=== PATIENT | male | born 1950 | race American Indian/Alaskan Native ===

== ENCOUNTER 2017-09-21 10:08 | Day surgery (SDC) | payer BC, MEDICARE ==
[2017-09-21] MEDS ORDERED: VIGAMOX OD SCH (11:00)
[2017-09-21] MEDS: ISOPTO CARPINE OD SCH ×3 (12:40→12:50)
[2017-09-21] MEDS: TETRACAINE 0.5% OD SCH ×3 (12:40→12:50)
--- NOTE | 2017-09-21 12:51 | Anesthesia Day of Surgery ---
Anesthesia Day of Surgery - Day of Surgery Patient Examined: Yes Patient H&P Reviewed: Yes Patient is NPO: Yes
--- NOTE | 2017-09-21 12:51 | Anesthesia Consultation ---
Anesthesia Consult and Med Hx Date of service: 09/21/17 - Airway Anesthetic Teeth Evaluation: Poor ROM Head & Neck: Adequate Mental/Hyoid Distance: Adequate Mallampati Class: Class II Intubation Access Assessment: Probably Good - Pulmonary Exam CTA: Yes - Cardiac Exam Cardiac Exam: RRR - Pre-Operative Health Status ASA Pre-Surgery Classification: ASA3 Proposed Anesthetic Plan: MAC - Pulmonary Hx Asthma: No SOB: Yes COPD: No Hx Pneumonia: No Hx Sleep Apnea: Yes (no CPAP) - Cardiovascular System Hx Hypertension: Yes (1 1/2 years) - Central Nervous System Hx Back Pain: Yes Hx Psychiatric Problems: No - Gastrointestinal Hx Ulcer: Yes (H/O PUD) - Endocrine Hx Renal Disease: No Hx End Stage Renal Disease: No Hx Non-Insulin Dependent Diabetes: Yes Hx Hypothyroidism: Yes (S/P THYROIDECTOMY IN EARLY S PER PT.) Hx Hyperthyroidism: Yes - Other Systems Hx Alcohol Use: No Hx Substance Use: No Hx Cancer: No
[2017-09-21] MEDS ORDERED: SUBLIMAZE ONE (13:25)
[2017-09-21] MEDS ORDERED: VERSED ONE (13:26)
[2017-09-21] MEDS ORDERED: XYLOCAINE MPF 1% INFILTRATI ONE ×2 (13:44→14:27)
--- NOTE | 2017-09-21 14:40 | Post Anesthesia Evaluation ---
- Post Anesthesia Evaluation Patient Participated: Yes Airway Patent: Yes Stable Respiratory Function: Yes Nausea/Vomiting: No Temp > 96.8F: Yes Pain Manageable: Yes Adequeate Hydration: Yes Anesthesia Complications: No
--- NOTE | 2017-09-21 14:59 | Short Stay Summary ---
Short Stay Documentation Date of service: 09/21/17 - History H&P: obtained from office - Allergies and Medications Current Medications: Allergies iodine Allergy (Verified 09/21/17 10:51) Anaphylaxis shellfish derived Allergy (Verified 09/21/17 10:51) Anaphylaxis Home Medications Medication Instructions Recorded Confirmed Last Taken Type Levothyroxine [Synthroid] 100 mcg PO QAM 09/10/13 09/20/17 11/26/14 07:30 History Oxycodone HCl/Acetaminophen 1 each PO Q6HR PRN 09/10/13 09/20/17 11/20/14 History [Percocet 10-325 mg] Nitrofurantoin Macrocrysta(Nf) 100 mg PO PRN 11/27/14 09/20/17 11/26/14 07:30 History [Macrodantin (Nf)] Metformin HCl [Fortamet ER] 1,000 mg PO QDAY 09/20/17 09/20/17 Unknown History Active Medications Moxifloxacin HCl (Vigamox) 1 drops OD Q5MIN MEETA Stop: 09/21/17 23:59 Pilocarpine HCl (Isopto Carpine) 1 drops OD Q5MIN MEETA Stop: 09/21/17 23:59 Prednisolone Acetate (Pred Forte 1%) 1 drops OD QID MEETA Last Admin: 09/21/17 14:40 Dose: 1 drops Tetracaine HCl (Tetracaine 0.5%) 1 drops OD Q5M MEETA Stop: 09/21/17 23:59 - Brief post op/procedure progress note Date of procedure: 09/21/17 Pre-op diagnosis: dislocated DSAEK graft right eye Post-op diagnosis: same Procedure: Cheryl bleeding and repositioning of dislocated graft right eye Anesthesia: MAC, local Surgeon: PRIYANK LOVELL Estimated blood loss: none Pathology: none Condition: stable - Disposition Condition at discharge: Good Disposition: DC-01 TO HOME OR SELFCARE - Discharge Diagnoses (1) Dislocated Descemet's stripping endothelial keratoplasty (DSEK) graft Status: Resolved Qualifiers: Encounter type: subsequent encounter Qualified Code(s): T85.328D - Displacement of other ocular prosthetic devices, implants and grafts, subsequent encounter Short Stay Discharge Plan Additional Instructions: FOLLOW SURGEON INSTRUCTION SHEETS. PRED FORTE ONE DROP 4X -A-DAY FOR 6 MONTHS. Follow up with: JULIAN MARIO MD [Primary Care Provider] - 7 Days Forms: Outpatient Surgery DC Inst.
[2017-09-21] MEDS ORDERED: PRED FORTE 1% ONE (15:02)
[2017-09-21 15:03] VITALS: BP 162/79
--- NOTE | 2017-09-21 15:04 | Operative Report ---
Operative Report Operative Report: PATIENT NAME: DATE OF : DATE OF SURGERY: 09/21/2017 PREOPERATIVE DIAGNOSIS: Dislocated DMAEK graft right eyet POSTOPERATIVE DIAGNOSIS: Same PROPOSED PROCEDURE: Repositioning and bubbling of corneal graft right eye OPERATIVE PROCEDURE: Same SURGEON: Anai Mcfarland MD AIRCRAFT ELECTRICIAN SURGEON: ANESTHESIA: Monitored anesthesia care in combination with topical and intracameral anesthesia because of the established specific risk of reflux, arrhythmias, or anxiety attacks associated with ocular manipulation, as well as the difficulty of the internet site designer to manage such potentially catastrophic events while simultaneously attempting to complete the surgical procedure and was deemed necessary for the patient's safety to have an anesthesiologist was present during the procedure whenever possible. The anesthesiologist was utilized to regulate the intravenous sedation of the patient so the patient was cooperative yet not asleep in order for the patient to successfully maintain fixation of the eye on the operating light of the microscope. PROFESSOR OF COMMUNICATION AND WRITING: COMPLICATIONS: None ALLERGIES: Iodine solution Fish PREOPERATIVE NOTE: The patient is a male who has the diagnosis of Fuchs dystrophy. Patient had undergone corneal transplant about 10 days ago and at the first follow-up the graft was completely attached. I do one week follow-up due graft was completely detached and had moved inferiorly. Because the graft was moving freely within the anterior chamber I decided to take the patient back to the operating room for re-bubbling and repositioning of graft PROGNOSIS: Excellent INDICATIONS FOR SURGERY: The patient is undergoing surgery with the hope of eliminating or improving these visual difficulties. A sharp blade was next used to make a stab incision in mid peripheral cornea into the anterior chamber. This was done so that the inner portion would be covered by the donor tissue later in the case. Gentian zach marked the incision as well. This incision was positioned to be used by my right hand. Air was injected onto the graft and the graft was resected using a bent 30- gauge needle. While graft was centered more air was injected. Patient was taken to recovery room where he was to stay for an hour before going home Needle reposition of the donor: The donor button of tissue could not be massaged into the correct position on the recipient cornea. Therefore, a 30- gauge needle was bent at its tip to form a right angle of the peripheral one- third to one-half of the beveled area. This needle was introduced into the anterior chamber and used to grasp the peripheral edge of the donor tissue and pull it into the correct position. Massage was then used to provide good apposition and centration of the tissue. DISCHARGE SUMMARY: The patient was released in stable condition. The patient and those with the patient were given a written sheet of postoperative instructions and counseling on any abnormal laboratory studies. The patient is to call immediately for difficulties and will otherwise see us in the morning at the office. The patient was given prescriptions for Tylenol No. 3, Keflex, and TobraDex ointment. Anai Mcfarland M.D. Date cc: Dictated: Worksheets: Transcribed:
[2017-09-21] MEDS ORDERED: PRED FORTE 1% OD SCH (18:00)
== END 2017-09-21 15:05 | disposition home or self-care (01) ==
LOC: OR 10:08
DX: T85.328A Displacement of other ocular prosthetic devices, implants and grafts, initial encounter (principal); Y83.2 Surgical operation with anastomosis, bypass or graft as the cause of abnormal reaction of the patient, or of later complication, without mention of misadventure at the time of the procedure; E89.0 Postprocedural hypothyroidism; I10 Essential (primary) hypertension; M19.90 Unspecified osteoarthritis, unspecified site; Z88.2 Allergy status to sulfonamides; Z91.041 Radiographic dye allergy status; Z79.899 Other long term (current) drug therapy; Z79.84 Long term (current) use of oral hypoglycemic drugs; Z86.718 Personal history of other venous thrombosis and embolism; Z98.890 Other specified postprocedural states; Z96.612 Presence of left artificial shoulder joint; Z94.7 Corneal transplant status
CPT/HCPCS: 66020; 82962; J2250; J3010

== ENCOUNTER 2018-03-15 09:51 | Day surgery (SDC) | payer BC, MEDICARE ==
[~2018-03-15 09:51] MED LIST: TOBRADEX ONE; XYLOCAINE 1%/ EPI 1:100,000 INFILTRATI ONE
--- NOTE | 2018-03-15 11:04 | Anesthesia Consultation ---
Anesthesia Consult and Med Hx Date of service: 03/15/18 - Airway Anesthetic Teeth Evaluation: Good ROM Head & Neck: Adequate Mental/Hyoid Distance: Adequate Mallampati Class: Class II Intubation Access Assessment: Probably Good - Pulmonary Exam CTA: Yes - Cardiac Exam Cardiac Exam: RRR - Pre-Operative Health Status ASA Pre-Surgery Classification: ASA3 Proposed Anesthetic Plan: MAC - Pulmonary Hx Asthma: No SOB: Yes COPD: No Hx Pneumonia: No Hx Sleep Apnea: Yes (no CPAP) - Cardiovascular System Hx Hypertension: Yes () - Central Nervous System Hx Back Pain: Yes Hx Psychiatric Problems: No - Gastrointestinal Hx Ulcer: Yes (H/O PUD) - Endocrine Hx Renal Disease: No Hx End Stage Renal Disease: No Hx Non-Insulin Dependent Diabetes: Yes Hx Hypothyroidism: Yes (S/P THYROIDECTOMY IN EARLY S PER PT.) Hx Hyperthyroidism: Yes - Other Systems Hx Alcohol Use: No Hx Substance Use: No Hx Cancer: No
--- NOTE | 2018-03-15 11:04 | Anesthesia Day of Surgery ---
Anesthesia Day of Surgery - Day of Surgery Patient Examined: Yes Patient H&P Reviewed: Yes Patient is NPO: Yes Beta Blockers: Yes Cardiac Clearance: No Pulmonary Clearance: No
[2018-03-15] MEDS: ISOPTO CARPINE OS SCH ×2 (11:49→11:55)
[2018-03-15] MEDS: TETRACAINE 0.5% OS PRN ×2 (11:50→12:00)
[2018-03-15] MEDS: VIGAMOX OS SCH ×2 (11:52→12:00)
[2018-03-15] MEDS ORDERED: PRED FORTE 1% OS SCH (14:00)
[2018-03-15] MEDS ORDERED: APRESOLINE ONE (14:22)
[2018-03-15] MEDS ORDERED: ANCEF ONE (14:25)
[2018-03-15] MEDS ORDERED: DECADRON ONE (14:25)
[2018-03-15] MEDS ORDERED: XYLOCAINE MPF 1% INFILTRATI ONE (14:48)
--- NOTE | 2018-03-15 15:12 | Operative Report ---
Operative Report Operative Report: PATIENT NAME: DATE OF : DATE OF SURGERY: 03/15/2018 PREOPERATIVE DIAGNOSIS: Fuchs dystrophy left eye POSTOPERATIVE DIAGNOSIS: SAME PROPOSED PROCEDURE: Endothelial keratoplasty with Descemets stripping/ Penetrating keratoplasty, *left eye HYBRID (DMAEK) ADDITIONAL PROCEDURE: NONE OPERATIVE PROCEDURE: 1. Endothelial keratoplasty with Descemets stripping/ Penetrating keratoplasty, left eye DMAEK SURGEON: Anai Mcfarland MD DRESSAGE JUDGE SURGEON: NONE ANESTHESIA: Monitored anesthesia care in combination with topical and intracameral anesthesia because of the established specific risk of reflux, arrhythmias, or anxiety attacks associated with ocular manipulation, as well as the difficulty of the conductor/engineer to manage such potentially catastrophic events while simultaneously attempting to complete the surgical procedure and was deemed necessary for the patient's safety to have an anesthesiologist was present during the procedure whenever possible. The anesthesiologist was utilized to regulate the intravenous sedation of the patient so the patient was cooperative yet not asleep in order for the patient to successfully maintain fixation of the eye on the operating light of the microscope. COMPLICATIONS: None ALLERGIES: None PREOPERATIVE NOTE: The patient is a male who has the diagnosis or diagnoses of Fuchs dystrophy. Examination of the posterior portion of the eyes by indirect ophthalmoscopy shows the optic nerve and retina to be normal. The patient has decompensation of the cornea with dysfunction and dystrophy of the corneal endothelium. Donor tissue will be used to replace the dysfunctional endothelium utilizing a penetrating technique into the anterior chamber. This complicated technique allows the patient to maintain structural integrity of the eye making it much more resistant to traumatic rupture than a standard keratoplasty. It also allows a larger than average surface area of transplanted endothelium which hopefully in the long run will allow for longer endothelial viability and success for the surgery. It also provides for faster visual recovery and less anisometropia than previous keratoplasty techniques. It is technically more difficult because of the complicated preparation of the donor tissue and insertion of the donor tissue into the anterior chamber with fixation of the tissue without direct suturing of the donor. This also provides an increased chance of dislocation of the donor tissue in the immediate postoperative period compared to standard keratoplasty techniques. This type of corneal transplant takes over twice as long as a standard corneal transplant. Moreover, the preparation and end of surgery are more time consuming for both the surgeon and staff: the blocking of the eye requires a longer setup time as noted, the procedure itself is more complex, and the patient needs to lay face up and flat in the recovery area for a specified period of time prior to discharge. Preoperatively, it was discussed with the patient that they could have either a standard corneal transplant or a variation of a penetrating keratoplasty where only the posterior layers of the cornea are transplanted. With this new technique, as with any corneal transplant, there is always the possibility that the surgery may need to be repeated; or, in this case, also repeated with a standard corneal transplant if the visual result is not satisfactory. However, some of the advantages of this current technique are much more rapid visual recovery and a tectonically stronger eye after surgery. PROGNOSIS: Excellent INDICATIONS FOR SURGERY: The patient is undergoing surgery with the hope of eliminating or improving these visual difficulties. OPERATIVE REPORT: The patient was taken into the preoperative area and evaluated medically and found from a systemic standpoint to be suitable for the planned surgery and anesthesia. The patient was then sedated and monitored by anesthesia. The patient was next taken into the operating room where they were positioned on the operating bed. They were given drops of topical anesthetic in the operative eye. Betadine was used to scrub the periorbital area, eyelids, adjacent cheek and forehead. The prepped area was dried with sterile gauze. The patient was draped, and a wire speculum was placed between the eyelids. The horizontal diameter of the cornea was measured with calipers to assist in determining the proper sizing of the trephination blade to be used for donor incision and for removal of the patients central Descemets membrane. PREPARATION OF DONOR TISSUE: Prior to surgery, the donor tissue was inspected and found to be adequate for the planned procedure. The involved eye bank provided the usual demographic information on the donor including age, cause of , necessary screening and blood work. The results were negative regarding possible transmission of diseases from the donor. Our inspection of the donor tissue showed no gross abnormalities. The patients donor cornea was prepared by the eye bank to separate the anterior and posterior portions of the cornea for the planned surgery. This was done with a microkeratome and the anterior cap of tissue was placed back on the cornea and it was removed from the artificial anterior chamber and placed in the Optisol storage solution and sent to us for transplantation. Gentian zach orozco were placed on the epithelial, or anterior surface of the corneal cap side of the tissue for identification. The cornea was inspected prior to surgery and found to be suitable and at the time of surgery was taken out of the storage solution and carefully centered on the cutting block with the centration based on the centration patrick that was made the eye bank on the external surface of the cornea-the stromal side. The donor tissue was removed from the tissue storage container by carefully removing it with forceps taking care not to touch the endothelial surface but only the scleral rim Suction was applied, the centration was rechecked to make sure it was perfectly centered. Once the size of the appropriate trephine was determined, the donor was punched with the trephine. The donor cornea was then covered with tissue storage solution and put aside for use later in the surgical procedure. PREPARATION OF THE RECIPIENT CORNEA: Attention was now directed to the patient s eye. The speculum had already been placed between the eyelids and the eye prepped and draped in my usual manner with Betadine solution prior to the starting the surgery. The horizontal corneal diameter was measured and the overall condition of the eye was evaluated to determine which size of trephine would best provide for as large donor button as possible without compromising the angle structures or iris. Once the trephine size was chosen, it was used lightly to patrick the epithelium on the corneal surface to provide a reference for later placement of the donor tissue and for removal of Descemets membrane. This was the same trephine used to punch the donor tissue. The patient had previously had a clear corneal incision of 5.0 mm for corneal surgery. This incision was able to be opened by using a Sinskey hook to separate the superficial area of the wound. Next, a cyclodialysis spatula was used to separate the deeper anterior vertical portion and the incision and then the lamellar portion. After the side port incision was made as noted below, a specially modified Bowen-Sherman hook was introduced through the reopened incision into the anterior chamber and advanced to the nasal side of the chamber. The hook was used to grab the nasal side of the graft and dislodge it. Pulling with the hook, the graft was disinserted from the back surface of the patient, or recipient, cornea and removed from the eye. In this case, the Descemets, which was stripped and removed, consisted of the previous graft with the portion of stroma from the previous donor. A sharp blade was next used to make a stab incision in mid peripheral cornea into the anterior chamber. This was done so that the inner portion would be covered by the donor tissue later in the case. Gentian zach marked the incision as well. This incision was positioned to be used by my right hand. A 23-gauge needle hooked up to an infusion of balanced salt solution was inserted through the midperipheral cornea into the anterior chamber. This was used to maintain the anterior chamber while removing Descemets membrane. A modified Bowen-Sherman hook was next placed through the stab incision and the hook was used to score Descemets membrane in a circular fashion, essentially scoring a [place] about 1.0 mm smaller than the previously placed reference patrick by the trephine on the epithelium. A specially designed Descemets stripper/ scraper was inserted into the eye and carefully extended across the anterior chamber in a manner not to empty the anterior chamber, to damage the iris, or to damage the lens. Starting at the nasal side of the anterior chamber, the stripper was used to catch Descemets membrane at the site of the scoring and the membrane was carefully stripped off the back surface of the cornea. The stripper was first pulled back centrally to loosen Descemets membrane there and then to each side to help try and remove the central area of Descemets membrane which had been outlined by the scoring. The membrane was then pulled out of the eye through the incision. The removed Descemets membrane was placed on the outer surface of the cornea and carefully unfolded to make sure it was removed in its entirety and that no portion was left in the central cornea. Any indication of retained central membrane was followed by reinsertion of the stripper and further removal of retained membrane. Care was taken during both the scoring and stripping not to unduly push up into the overlying cornea as that can cause tearing of the corneal tissue, producing an irregular surface which can lead to decreased visual recovery and difficulty with adherence of the donor tissue to the recipient. Once it was confirmed that Descemets membrane was removed, the incision was extended with the sharp blade for its full length into the anterior chamber. The anterior chamber was reinflated with balanced salt solution. The donor tissue was removed from the cutting block and transferred to the operative field. It was placed on the patients cornea so that the endothelium of the donor was facing up. The tissue storage solution and any blood or other material was allowed to flow off the donor tissue. A small amount of viscoelastic was then placed on the endothelial surface of the donor. Two forceps were then used to grasp an edge of the donor taking care not to actually touch the endothelium and the posterior portion of the donor, which had been previously dissected on the artificial anterior chamber, and the donor gently partially pulled apart about half of the posterior portion from the anterior portion. A Busin Funnel was brought into the operative field and the posterior portion of the donor was pulled onto it. Intraocular forceps were used to pull the tissue into the funnel, essentially making it fold over on itself endothelial side inward. The intraocular forceps were then introduced through a previously made peripheral corneal stab incision in the nasal cornea. The forceps were moved across the anterior chamber to the area of the 5.0 mm incision. The Busin funnel was inserted into the 5.0 mm wound. The forceps grasped the edge of the donor tissue and the tissue was pulled into the eye. Once inside the eye, the forceps released their hold and the funnel was removed. Using a 30-gauge needle, a small stab incision was made in the peripheral cornea and a small amount of air was injected within the folded-over piece of donor tissue in the eye. The air was slowly injected to unfold the donor endothelial side down. Once the donor had unfolded, the anterior chamber was completely filled with air. A Brandon roller was used to massage the anterior surface of the cornea and to massage the donor tissue into the correct position. The massaging also helped to remove retained air or fluid caught between the donor and recipient tissue. Once the donor was in the correct position and no retained fluid or air was present between the donor and recipient, the timer was started and the anterior chamber was left completely filled with air for the designated time. OTHER SPECIFICS OF THE SURGICAL PROCEDURE: Trephine size: 7.75 mm Horizontal corneal diameter: 11.0 mm Time anterior chamber was completely filled with air in the operating room while the donor cornea was allowed to hold in position without any manipulation or massagin minutes The patient laid face up and flat in the recovery room with a partial air bubble to help with further adherence of the donor cornea to the recipient cornea for the following length of time: 45 minutes Needle reposition of the donor: The donor button of tissue could not be massaged into the correct position on the recipient cornea. Therefore, a 30- gauge needle was bent at its tip to form a right angle of the peripheral one- third to one-half of the beveled area. This needle was introduced into the anterior chamber and used to grasp the peripheral edge of the donor tissue and pull it into the correct position. Massage was then used to provide good apposition and centration of the tissue. SUBCONJUNCTIVAL INJECTIONS: Decadron 0.1 mL PF MEDICATIONS APPLIED AT END OF SURGERY: 8 md of decadron and 1 gm of Ancef ADDITIONAL NOTES: [employer] DISCHARGE SUMMARY: The patient was released in stable condition. The patient and those with the patient were given a written sheet of postoperative instructions and counseling on any abnormal laboratory studies. The patient is to call immediately for difficulties and will otherwise see us in the morning at the office.
--- NOTE | 2018-03-15 15:15 | Short Stay Summary ---
Short Stay Documentation Date of service: 03/15/18 - History H&P: obtained from office - Allergies and Medications Current Medications: Allergies iodine Allergy (Verified 03/14/18 12:24) Anaphylaxis shellfish derived Allergy (Verified 03/14/18 12:24) Anaphylaxis Home Medications Medication Instructions Recorded Confirmed Last Taken Type Levothyroxine [Synthroid] 100 mcg PO QAM 09/10/13 09/20/17 09/20/17 History Oxycodone HCl/Acetaminophen 1 each PO Q6HR PRN 09/10/13 09/20/17 09/20/17 History [Percocet 10-325 mg] Nitrofurantoin Macrocrysta(Nf) 100 mg PO PRN 11/27/14 09/20/17 09/20/17 History [Macrodantin (Nf)] Metformin HCl [Fortamet ER] 1,000 mg PO QDAY 09/20/17 09/20/17 09/20/17 History Losartan Potassium 100 mg PO DAILY 09/21/17 09/21/17 09/21/17 08:30 History Active Medications Moxifloxacin HCl (Vigamox) 1 drops OS Q5MIN MEETA Stop: 03/17/18 11:18 Last Admin: 03/15/18 12:00 Dose: 1 drops Pilocarpine HCl (Isopto Carpine) 1 drops OS Q5MIN MEETA Stop: 03/17/18 12:01 Last Admin: 03/15/18 11:55 Dose: 1 drops Prednisolone Acetate (Pred Forte 1%) 1 drops OS QID MEETA Last Admin: 03/15/18 15:02 Dose: 1 drops Tetracaine HCl (Tetracaine 0.5%) 1 drops OS Q5M PRN PRN Reason: Analgesia Last Admin: 03/15/18 12:00 Dose: 1 drops - Brief post op/procedure progress note Date of procedure: 03/15/18 Pre-op diagnosis: Fuchs dystrophy left eye Post-op diagnosis: same Procedure: Hybrid DMAEK LEFT EYE Anesthesia: MAC, local Surgeon: PRIYANK LOVELL Estimated blood loss: minimal Pathology: list (DONOR CORNEA) Specimen disposition: to lab Condition: stable - Disposition Condition at discharge: Good Disposition: DC-01 TO HOME OR SELFCARE - Discharge Diagnoses (1) Fuchs' endothelial dystrophy Status: Resolved Short Stay Discharge Plan Additional Instructions: DR. LOVELL POST OP INSTRUCTIONS GIVEN. Follow up with: JULIAN MARIO MD [Primary Care Provider] - 7 Days Forms: Outpatient Surgery DC Inst.
[2018-03-15] MEDS ORDERED: SUBLIMAZE ONE (15:33)
[2018-03-15] MEDS ORDERED: VERSED ONE (15:33)
[2018-03-15 15:57] VITALS: BP 172/92
== END 2018-03-15 15:40 | disposition home or self-care (01) ==
LOC: OR 09:51
DX: H18.51 Endothelial corneal dystrophy (principal); M19.90 Unspecified osteoarthritis, unspecified site; N40.0 Benign prostatic hyperplasia without lower urinary tract symptoms; I10 Essential (primary) hypertension; K27.9 Peptic ulcer, site unspecified, unspecified as acute or chronic, without hemorrhage or perforation; E11.9 Type 2 diabetes mellitus without complications; E89.0 Postprocedural hypothyroidism; G43.909 Migraine, unspecified, not intractable, without status migrainosus; G47.30 Sleep apnea, unspecified; Z91.041 Radiographic dye allergy status; Z91.013 Allergy to seafood; Z79.84 Long term (current) use of oral hypoglycemic drugs; Z98.890 Other specified postprocedural states
CPT/HCPCS: 65756; 82962; 87075; 87116; J0360; J0690; J1100; J2250; J3010; V2785

== ENCOUNTER 2018-03-21 06:51 | Day surgery (SDC) | payer BC ==
[2018-03-21] MEDS ORDERED: XYLOCAINE 1% MPF 5 mL ONE (07:01)
[2018-03-21] MEDS ORDERED: TETRACAINE 0.5% ONE (07:02)
[2018-03-21] MEDS ORDERED: VIGAMOX ONE (07:05)
[2018-03-21] MEDS ORDERED: TETRACAINE 0.5% OS ONE (07:42)
[2018-03-21] MEDS ORDERED: XYLOCAINE 1%/ EPI 1:100,000 INFILTRATI ONE (07:46)
[2018-03-21] MEDS ORDERED: BSS OS ONE (07:49)
[2018-03-21] MEDS ORDERED: BSS ONE (07:58)
[2018-03-21] MEDS ORDERED: VIGAMOX OS ONE (08:29)
--- NOTE | 2018-03-21 09:04 | Operative Report ---
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 Patient came to the office on Monday postop day #4 and was noted that the current transplant was completely detached. Because the transplant was detached and removed inferiorly it was decided that it was better for me to take him to the operating room to re-bubble and moved to transplant centrally. The patient had a DMAEK which is very thin corneal transplant and because of the thickness of this transplant it is more likely to detach. Patient was taken to the operating room laid supine I was prepped and draped for standard intraocular surgery. Vigamox had been placed into the patient eye 3 every 5 minutes apart. BSS was injected into the eye then transplant was more centrally by tapping the cornea. Once centered air was injected and the cornea and anterior chamber was left full for about 12 minutes. Once this was achieved some of the air was removed and replaced with BSS. At the end of the case 1 drop of Vigamox 1 drop of 10% phenylephrine were placed into the eye. I used 1% lidocaine preservative free throughout the case. Patient tolerated procedure well and went home without any problem.
--- NOTE | 2018-03-21 09:06 | Short Stay Summary ---
Short Stay Documentation Date of service: 03/21/18 - History H&P: obtained from office - Allergies and Medications Current Medications: Allergies iodine Allergy (Verified 03/21/18 05:55) Anaphylaxis shellfish derived Allergy (Verified 03/21/18 05:55) Anaphylaxis Home Medications Medication Instructions Recorded Confirmed Last Taken Type Levothyroxine [Synthroid] 100 mcg PO QAM 09/10/13 03/21/18 09/20/17 History Oxycodone HCl/Acetaminophen 1 each PO Q6HR PRN 09/10/13 03/21/18 09/20/17 History [Percocet 10-325 mg] Nitrofurantoin Macrocrysta(Nf) 100 mg PO PRN 11/27/14 03/21/18 09/20/17 History [Macrodantin (Nf)] Metformin HCl [Fortamet ER] 1,000 mg PO QDAY 09/20/17 03/21/18 09/20/17 History Losartan Potassium 100 mg PO DAILY 09/21/17 03/21/18 09/21/17 08:30 History - Brief post op/procedure progress note Date of procedure: 03/21/18 Pre-op diagnosis: detached graft left eye Post-op diagnosis: same Procedure: Rebuilding of detached graft left eye Anesthesia: local Surgeon: PRIYANK LOVELL Estimated blood loss: minimal Pathology: none Condition: stable - Disposition Condition at discharge: Good Disposition: DC-01 TO HOME OR SELFCARE - Discharge Diagnoses (1) 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
[2018-03-21 09:17] VITALS: BP 159/84
== END 2018-03-21 06:52 | disposition home or self-care (01) ==
LOC: OR 06:51
DX: T85.328A Displacement of other ocular prosthetic devices, implants and grafts, initial encounter (principal); Z79.899 Other long term (current) drug therapy; Y83.2 Surgical operation with anastomosis, bypass or graft as the cause of abnormal reaction of the patient, or of later complication, without mention of misadventure at the time of the procedure; Z91.041 Radiographic dye allergy status; Z91.013 Allergy to seafood
CPT/HCPCS: 82962

== ENCOUNTER 2018-03-29 07:37 | Day surgery (SDC) | payer BC ==
[~2018-03-29 07:37] MED LIST changes: +LACTATED RINGERS 1,000 ML IV SCH; -TOBRADEX ONE; +VERSED IV NR; -XYLOCAINE 1%/ EPI 1:100,000 INFILTRATI ONE
--- NOTE | 2018-03-29 08:22 | Anesthesia Consultation ---
Anesthesia Consult and Med Hx Date of service: 03/29/18 - Airway Anesthetic Teeth Evaluation: Dentures ROM Head & Neck: Adequate Mental/Hyoid Distance: Adequate Mallampati Class: Class III Intubation Access Assessment: Probably Good - Pulmonary Exam CTA: Yes - Cardiac Exam Cardiac Exam: RRR - Pre-Operative Health Status ASA Pre-Surgery Classification: ASA3 Proposed Anesthetic Plan: MAC - Pulmonary Hx Asthma: No SOB: Yes COPD: No Hx Sleep Apnea: Yes (no CPAP) - Cardiovascular System Hx Hypertension: Yes () - Central Nervous System Hx Back Pain: Yes Hx Psychiatric Problems: No - Gastrointestinal Hx Ulcer: Yes (H/O PUD) - Endocrine Hx Non-Insulin Dependent Diabetes: Yes Hx Hypothyroidism: Yes (S/P THYROIDECTOMY IN EARLY 1979'S PER PT.) Hx Hyperthyroidism: Yes - Other Systems Hx Cancer: No
[2018-03-29] MEDS ORDERED: TETRACAINE 0.5% OS PRN (08:30)
[2018-03-29] MEDS: VIGAMOX OS SCH ×3 (08:30→08:40)
[2018-03-29] MEDS ORDERED: XYLOCAINE MPF 1% INFILTRATI ONE (09:27)
[2018-03-29] MEDS ORDERED: VISION BLUE IO ONE (09:29)
[2018-03-29] MEDS ORDERED: BSS OS ONE (09:29)
[2018-03-29] MEDS ORDERED: ADRENALINE P/F ONE (10:00)
--- NOTE | 2018-03-29 10:20 | Operative Report ---
Operative Report Operative Report: Patient was taken to operating room and laid supine eye was prepped and draped for intraocular surgery. Supersharp blade was used to make an incision to my left followed by injection of trypan blue. No loose tags were found. Air was injected into the graft centered and patient was medical home with instructions to call if he started to have eye pressure or pain
--- NOTE | 2018-03-29 10:21 | Short Stay Summary ---
Short Stay Documentation Date of service: 03/29/18 - History H&P: obtained from office - Allergies and Medications Current Medications: Allergies iodine Allergy (Verified 03/28/18 12:10) Anaphylaxis shellfish derived Allergy (Verified 03/28/18 12:10) Anaphylaxis Home Medications Medication Instructions Recorded Confirmed Last Taken Type Levothyroxine [Synthroid] 100 mcg PO QAM 09/10/13 03/28/18 09/20/17 History Oxycodone HCl/Acetaminophen 1 each PO Q6HR PRN 09/10/13 03/28/18 09/20/17 History [Percocet 10-325 mg] Nitrofurantoin Macrocrysta(Nf) 100 mg PO PRN 11/27/14 03/28/18 09/20/17 History [Macrodantin (Nf)] Metformin HCl [Fortamet ER] 1,000 mg PO QDAY 09/20/17 03/28/18 09/20/17 History Losartan Potassium 100 mg PO DAILY 09/21/17 03/28/18 09/21/17 08:30 History Active Medications Lactated Ringer's (Lactated Ringers) 1,000 mls @ 100 mls/hr IV DIRECT MEETA Midazolam HCl (Versed) 2 mg IV PREOP NR Stop: 03/29/18 23:59 Prednisolone Acetate (Pred Forte 1%) 1 drops OD QID MEETA Tetracaine HCl (Tetracaine 0.5%) 1 drops OS Q5M PRN PRN Reason: Analgesia Stop: 03/29/18 11:00 Last Admin: 03/29/18 08:30 Dose: 1 drops - Brief post op/procedure progress note Date of procedure: 03/29/18 Pre-op diagnosis: detached graft left eye Post-op diagnosis: same Procedure: re bubbling of detached graft left eye Anesthesia: local Surgeon: PRIYANK LOVELL Estimated blood loss: none Pathology: none Condition: stable - Disposition Condition at discharge: Good Disposition: DC-01 TO HOME OR SELFCARE Short Stay Discharge Plan Additional Instructions: FOLLOW SURGEON INSTRUCTION SHEETS. Follow up with: JULIAN MARIO MD [Primary Care Provider] - 7 Days Forms: Outpatient Surgery DC Inst.
[2018-03-29] MEDS ORDERED: PRED FORTE 1% OD SCH (10:30)
[2018-03-29 19:27] VITALS: BP 170/90
== END 2018-03-29 10:55 | disposition home or self-care (01) ==
LOC: OR 07:37
DX: T85.328A Displacement of other ocular prosthetic devices, implants and grafts, initial encounter (principal); K27.9 Peptic ulcer, site unspecified, unspecified as acute or chronic, without hemorrhage or perforation; G47.30 Sleep apnea, unspecified; E89.0 Postprocedural hypothyroidism; E11.9 Type 2 diabetes mellitus without complications; Z79.84 Long term (current) use of oral hypoglycemic drugs; Z91.041 Radiographic dye allergy status; Z79.899 Other long term (current) drug therapy; Z91.013 Allergy to seafood; Y83.2 Surgical operation with anastomosis, bypass or graft as the cause of abnormal reaction of the patient, or of later complication, without mention of misadventure at the time of the procedure; Z98.890 Other specified postprocedural states
CPT/HCPCS: 66020; 82962; J0171

== ENCOUNTER 2021-09-06 08:10 | Day surgery (SDC) | payer BC, MEDICARE ==
[2021-09-06] MEDS ORDERED: LACTATED RINGERS 1,000 ML ONE (08:57)
[2021-09-06] MEDS ORDERED: ONDANSETRON 4 MG/2 ML INJ IV PRN (09:57)
[2021-09-06] MEDS ORDERED: HYDROmorphone 1 MG/1 ML INJ IV PRN ×2 (09:57)
[2021-09-06] MEDS ORDERED: LACTATED RINGERS 1,000 ML IV SCH (10:00)
--- NOTE | 2021-09-06 10:04 | Anesthesia Day of Surgery ---
Anesthesia Day of Surgery - Day of Surgery Patient Examined: Yes Patient H&P Reviewed: Yes Patient is NPO: Yes
--- NOTE | 2021-09-06 10:07 | Anesthesia Consultation ---
Anesthesia Consult and Med Hx Date of service: 09/06/21 - Airway Anesthetic Teeth Evaluation: Dentures, Edentulous (Pt has THRUSH and is being treated for it. He reports negative tongue biopsy) ROM Head & Neck: Adequate Mental/Hyoid Distance: Adequate Mallampati Class: Class II Intubation Access Assessment: Good - Pre-Operative Health Status ASA Pre-Surgery Classification: ASA3 Proposed Anesthetic Plan: General - Pulmonary Hx Asthma: Yes ( CHILD ONLY) Hx Respiratory Symptoms: No (+2FS) SOB: Yes COPD: No (PE in ) Hx Sleep Apnea: Yes (no CPAP USE) - Cardiovascular System Hx Hypertension: Yes () Hx Heart Attack/AMI: No - Central Nervous System Hx Seizures: No Hx Back Pain: Yes (DDD and spinal fx from fall) Hx Psychiatric Problems: No - Gastrointestinal Hx Ulcer: Yes (H/O PUD) - Endocrine Hx End Stage Renal Disease: No Hx Liver Disease: No Hx Non-Insulin Dependent Diabetes: Yes Hx Hypothyroidism: Yes (S/P THYROIDECTOMY IN EARLY PER PT.) Hx Hyperthyroidism: Yes - Hematic Hx Anemia: No Hx Sickle Cell Disease: No - Other Systems Hx Alcohol Use: No Hx Substance Use: No Hx Cancer: No - Additional Comments Anesthesia Medical History Comments: Has been here several times
[2021-09-06] MEDS ORDERED: LIDOCAINE MPF (2%) 20 MG/1 ML VIAL 5 ML ONE (11:28)
[2021-09-06] MEDS ORDERED: propofoL 200 MG/20 ML VIAL IV ONE (11:28)
[2021-09-06] MEDS ORDERED: HYDROmorphone 1 MG/1 ML INJ ONE (11:28)
[2021-09-06] MEDS ORDERED: ceFAZolin/STERILE WATER 2 GM/20 ML SYRINGE IV SCH (12:00)
[2021-09-06] MEDS ORDERED: WATER FOR IRRIG STERILE 1,500 ML BOTTLE IR ONE (12:02)
[2021-09-06] MEDS ORDERED: WATER FOR IRRIG STERILE 2000 ML IR ONE (12:03)
[2021-09-06] MEDS ORDERED: IOHEXOL 300 MG/ML 50ML IV ONE (12:08)
[2021-09-06] MEDS ORDERED: ePHEDrine SULFATE 50 MG/1 ML INJ ONE (12:10)
[2021-09-06] MEDS ORDERED: LIDOCAINE 2% UROJECT 10 ML JELLY ONE (12:16)
[2021-09-06] MEDS ORDERED: LIDOCAINE 2% JELLY 30 ML TP ONE (12:18)
[2021-09-06] MEDS ORDERED: PHENYLEPHRINE/NS 1,000 MCG/10 ML SYRINGE (OR USE) IV ONE (12:39)
[2021-09-06] MEDS ORDERED: ONDANSETRON 4 MG/2 ML INJ ONE (12:39)
--- NOTE | 2021-09-06 13:05 | Post Operative Note ---
Date of procedure: 09/06/21 Pre-op diagnosis: penile lesion stricture Post-op diagnosis: same Findings: 2 cm stricture Procedure: cysto dviu penile bx Anesthesia: GETA Surgeon: JUSTINA DESAI Estimated blood loss: none Pathology: list (penis) Specimen disposition: to lab Condition: stable Disposition: PACU
--- NOTE | 2021-09-06 13:07 | Discharge Summary ---
Short Stay Discharge Plan Activity: other (no straining ) Weight Bearing Status: Full Weight Bearing Diet: low fat, low cholesterol, low salt Special Instructions: other (inc fluids ) Durable Medical Equipment Needed Upon Discharge: other (teach cath care ) Follow up with: JULIAN WASHINGTON [Other] - 7 Days JUSTINA DESAI MD [Staff Physician] - 7 Days
--- NOTE | 2021-09-06 13:24 | Operative Report ---
DATE OF SURGERY: 09/06/2021 PREOPERATIVE DIAGNOSES: Previous urethral stricture disease. The patient has been catheterizing himself on and off and penile lesion. POSTOPERATIVE DIAGNOSES: Previous urethral stricture disease. The patient has been catheterizing himself on and off and penile lesion. FINDINGS: This is a gentleman who had a buccal mucosal graft about 6-7 years ago. He has been doing well, but more recently the flow got weaker. He started catheterizing himself. He says sometimes the flow is good. He now presents for cystoscopy. 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 He now presents for biopsies well. DESCRIPTION OF PROCEDURE: The patient was brought to the operating room and placed on the operating table. Following induction of anesthesia, placed in lithotomy position, prepped and draped in usual sterile fashion. Cystourethroscopy showed the stricture and we had trouble putting a wire. We did a urethrogram. We used lidocaine jelly and there was no extravasation, but very fine stricture at the membranous junction. Once the bulb was manipulated with an open-ended and a Glidewire, we got into the bladder. We were able to open up about a 2 cm stricture, which did not bleed. We got through the prostatic urethra. Bladder neck was open. Bladder was 1-2+ trabeculated. We then placed a Councill catheter over a wire. The patient tolerated the procedure well, no complication. A small biopsy of the penis was done. This area was cauterized and sutured with 2-3 sutures of chromic and brought to recovery in stable condition. TID: [id number] RECEIPT: [id number] ALENA/SANCHO
--- NOTE | 2021-09-06 13:53 | Post Anesthesia Evaluation ---
- Post Anesthesia Evaluation Patient Participated: Yes Airway Patent: Yes Stable Respiratory Function: Yes Nausea/Vomiting: No Temp > 96.8F: Yes Pain Manageable: Yes Adequeate Hydration: Yes Anesthesia Complications: No Block Receding Appropriately: Not Applicable Patient on Ventilator: No
--- NOTE | 2021-09-06 15:53 | Fluoroscopy Report ---
FL retrograde urethrogram-OR INDICATION / CLINICAL INFORMATION: URETHRAL STRICTURE. COMPARISON: None available. FINDINGS: Retrograde ureterography was performed. There is reflux into the bladder. No high-grade narrowing is seen. Irregularity is present at the proximal bulbar urethra on one image only which may be artifactu al. Fluoroscopy time: 80 seconds. Fluoroscopic images: 5. Signer Name: Jean Franklin MD Signed: 09/06/2021 3:49 PM Workstation Name: [id number]
[2021-09-06 20:02] VITALS: BP 152/84
== END 2021-09-06 08:11 | disposition home or self-care (01) ==
LOC: OR 08:10
PROVIDERS: ATTEND Urology
DX: N35.919 Unspecified urethral stricture, male, unspecified site (principal); N48.89 Other specified disorders of penis; J45.909 Unspecified asthma, uncomplicated; I10 Essential (primary) hypertension; M19.90 Unspecified osteoarthritis, unspecified site; Z87.11 Personal history of peptic ulcer disease; Z79.899 Other long term (current) drug therapy; E89.0 Postprocedural hypothyroidism; Z98.890 Other specified postprocedural states
CPT/HCPCS: 51605; 52276; 54100; 74450; 82962; 88305; C1726; C1758; C1769; J0690; J1170; J2370; J2405; J2704; J7120; Q9967